=== PATIENT | male | born 1995 | race Caucasian/White ===

== ENCOUNTER 2020-08-02 10:22 | Outpatient (CLI) | payer OTHER | END 2020-08-02 10:26 | disposition home or self-care (01) | LOC: LAB 10:22 | DX: Z20.828 Contact with and (suspected) exposure to other viral communicable diseases (principal) ==

== ENCOUNTER 2021-08-30 08:00 | Outpatient (CLI) | payer OTHER | END 2021-08-30 08:30 | disposition home or self-care (01) | LOC: PPH VACUNA 08:00 | PROVIDERS: ATTEND Emergency Medicine Pediatric Emergency Medicine | DX: Z23 Encounter for immunization (principal) ==

== ENCOUNTER 2023-11-14 10:19 | Emergency (ER) | payer OTHER ==
[~2023-11-14] VITALS: Ht 167.6 cm; Wt 63.5 kg
== END 2023-11-14 11:42 | disposition home or self-care (01) ==
LOC: ER 10:20
DX: S01.122A Laceration with foreign body of left eyelid and periocular area, initial encounter (principal); X58.XXXA Exposure to other specified factors, initial encounter; Y93.89 Activity, other specified; Y92.89 Other specified places as the place of occurrence of the external cause

== ENCOUNTER 2023-12-17 11:55 | Emergency (ER) | payer OTHER ==
[~2023-12-17] VITALS: Ht 167.6 cm; Wt 63.5 kg
== END 2023-12-17 14:02 | disposition home or self-care (01) ==
LOC: ER → EDBD 12:52 → ER 12:52
DX: S05.8X2A Other injuries of left eye and orbit, initial encounter (principal); Y33.XXXA Other specified events, undetermined intent, initial encounter; Y93.89 Activity, other specified; Y92.89 Other specified places as the place of occurrence of the external cause; Y99.8 Other external cause status